=== PATIENT | male | born 1970 | race American Indian/Alaskan Native ===

== ENCOUNTER 2021-01-28 07:59 | Inpatient (IN) | payer OTHER ==
[2021-01-28 10:19] LABS: Hematocrit 41.6 % (35.5-45.6); Hemoglobin 14.4 gm/dl (11.8-15.2); Mean Corpuscular HGB Conc 35 % (32-34); Mean Corpuscular Volume 97 fl (84-94); Red Blood Count 4.29 M/mm3 (3.65-5.03); Red Cell Distribution Width 14.4 % (13.2-15.2)
[2021-01-28 10:21] LABS: Platelet Count 84 K/mm3 (140-440)
[2021-01-28 10:37] LABS: Alanine Aminotransferase 77 units/L (7-56); BUN/Creatinine Ratio 9; Blood Urea Nitrogen 7 mg/dL (9-20); Calcium 10.4 mg/dL (8.4-10.2); Hemolysis Index 9
[2021-01-28 12:00] LABS: Albumin < 0.2 g/dL (3.9-5)
[2021-01-28] MEDS ORDERED: LORazepam 2 MG/ML VIAL IV ONE (13:50)
[2021-01-28] MEDS ORDERED: SODIUM CHLORIDE 0.9% 1000 ML 1,000 ML IV ONE ×2 (13:50→16:50)
--- NOTE | 2021-01-28 14:04 | Emergency Department Report ---
HPI - HPI HPI: Room 5 The patient is a 51-year-old male present with a chief complaint of alcohol withdrawal. Patient states he almost fell while getting out of bed. Patient states he has been experiencing anxiety and body shakes lately. Patient appears slightly confused but grossly tremulous. Patient admits to drinking beer daily (two 24 ounce cans) but states he has been attempting to detox on his own and dumas s not consumed any beer in the last 4 days. <VALENCIA DE LOS SANTOS - Last Filed: 01/28/21 15:59> <LEONIDAS SHAIKH - Last Filed: 01/28/21 16:53> - General Chief Complaint: Anxiety Time Seen by Provider: 01/28/21 13:40 ED Past Medical Hx - Past Medical History Previous Medical History?: Yes Hx Hypertension: Yes Hx Psychiatric Treatment: Yes (anxiety) Hx Asthma: Yes - Surgical History Past Surgical History?: Yes - Family History Family history: no significant - Social History Smoking Status: Current Some Day Smoker Substance Use Type: None (Denies illicit drug use), Alcohol (48 ounces of beer daily) <VALENCIA DE LOS SANTOS - Last Filed: 01/28/21 15:59> <LEONIDAS SHAIKH - Last Filed: 01/28/21 16:53> - Medications Home Medications: Home Medications Medication Instructions Recorded Confirmed Last Taken Type ALBUTEROL NEB's [Proventil 0.083% 1 inh IH 4XD PRN 01/28/21 01/28/21 Unknown History NEBS] Budesonide/Formoterol Fumarate 10.2 gm IH DAILY 01/28/21 01/28/21 Unknown History [Symbicort 80-4.5 Mcg Inhaler] ED Review of Systems ROS: Stated complaint: SHAKING, SEEING THINGS, HEADACHE Other details as noted in HPI Constitutional: no symptoms reported Eyes: denies: eye pain ENT: denies: throat pain Respiratory: no symptoms reported Cardiovascular: denies: chest pain Endocrine: no symptoms reported Gastrointestinal: denies: abdominal pain Genitourinary: denies: dysuria Musculoskeletal: denies: back pain Neurological: denies: headache Psychiatric: anxiety <VALENCIA DE LOS SANTOS - Last Filed: 01/28/21 15:59> ROS: Stated complaint: SHAKING, SEEING THINGS, HEADACHE Other details as noted in HPI <SHEAR,LEONIDAS S - Last Filed: 01/28/21 16:53> Physical Exam - Physical Exam Vital Signs: Vital Signs 01/28/21 08:37 Pulse Rate 124 H Respiratory 19 Rate Blood Pressure 137/97 O2 Sat by Pulse 97 Oximetry Physical Exam: GENERAL: The patient is well-developed thin male with obvious tremulousness HEENT: Normocephalic. Atraumatic. Extraocular motions are intact. Patient has moist mucous membranes. Tongue tremulous NECK: Supple. Trachea midline CHEST/LUNGS: Clear to auscultation. There is no respiratory distress noted. HEART/CARDIOVASCULAR: Regular. There is tachycardia. There is no gallop rub or murmur. ABDOMEN: Abdomen is soft, nontender. Patient has normal bowel sounds. There is no abdominal distention. SKIN: There is no rash. There is no edema. There is no diaphoresis. NEURO: The patient is awake, alert, and oriented. The patient is cooperative. The patient has no focal neurologic deficits. The patient has normal speech. Patient is tremulous. Patient appears anxious MUSCULOSKELETAL: There is no evidence of acute injury. <VALENCIA DE LOS SANTOS K - Last Filed: 01/28/21 15:59> - Physical Exam Vital Signs: Vital Signs 01/28/21 01/28/21 08:37 14:04 Temperature 100.6 F H Pulse Rate 124 H 105 H Respiratory 19 22 Rate Blood Pressure 137/97 Blood Pressure 152/11 [Right] O2 Sat by Pulse 97 97 Oximetry <LEONIDAS SHAIKH S - Last Filed: 01/28/21 16:53> ED Course Vital Signs 01/28/21 08:37 Pulse Rate 124 H Respiratory 19 Rate Blood Pressure 137/97 O2 Sat by Pulse 97 Oximetry - Consultations Consultation #1: 01/28/21 15:40 [facility] paged. <VALENCIA DE LOS SANTOS - Last Filed: 01/28/21 15:59> Vital Signs 01/28/21 01/28/21 08:37 14:04 Temperature 100.6 F H Pulse Rate 124 H 105 H Respiratory 19 22 Rate Blood Pressure 137/97 Blood Pressure 152/11 [Right] O2 Sat by Pulse 97 97 Oximetry - Consultations Consultation #2: 01/28/21 16:[address] Malhotra at [place]. We have been given permission to admit the patient to our facility. <LEONIDAS SHAIKH S - Last Filed: 01/28/21 16:53> ED Medical Decision Making - Lab Data Result diagrams: 01/28/21 09:59 01/28/21 14:12 <VALENCIA DE LOS SANTOS - Last Filed: 01/28/21 15:59> - Lab Data Result diagrams: 01/28/21 09:59 01/28/21 14:12 - Medical Decision Making CIWA-Ar for Alcohol Withdrawal RESULT SUMMARY: 17 points Patients with scores ?9 may require medication for withdrawal. INPUTS: Nausea/vomiting > 1 = Mild nausea and no vomiting Tremor > 2 = (More severe symptoms) Paroxysmal sweats > 1 = Barely perceptible sweating, palms moist Anxiety > 6 = (More severe symptoms) Agitation > 5 = (More severe symptoms) Tactile disturbances > 0 = None Auditory disturbances > 0 = Not present Visual disturbances > 0 = Not present Headache/fullness in head > 0 = Not Present Orientation/clouding of sensorium > 2 = Disoriented for date by no more than 2 calendar days I was signed out this patient by my colleague to talk with [facility] and reevaluate the patient. [facility] feels that the patient should not be transferred and they have given us permission to admit him to our hospital. The patient has received 4 mg of Ativan and remains tachycardic, anxious and agitated. Despite the medication, the patient has pulled out 4 different IVs and is visibly disturbed by anything that is on his arm such as tape or the blood pressure cuff. When asked the patient what he is doing in the emergency department he tells me something nonsensical. He is disoriented to the date saying it is 2019. When I do a CIWA score the patient is a 17. The patient will receive 4 mg of Ativan. With the disorientation, as well as the other symptoms, the patient appears to be starting to go into delirium tremens. He will be admitted to the hospital for further evaluation and treatment and was accepted for admission by the hospitalist, Dr. Gonzalez. <LEONIDAS SHAIKH - Last Filed: 01/28/21 16:53> Critical care attestation.: If time is entered above; I have spent that time in minutes in the direct care of this critically ill patient, excluding procedure time. <ALIM,VALENCIA K - Last Filed: 01/28/21 15:59> Critical care attestation.: If time is entered above; I have spent that time in minutes in the direct care of this critically ill patient, excluding procedure time. <LEONIDAS SHAIKH - Last Filed: 01/28/21 16:53> ED Disposition <VALENCIA DE LOS SANTOS - Last Filed: 01/28/21 15:59> Is pt being admited?: Yes <LEONIDAS SHAIKH - Last Filed: 01/28/21 16:53> Clinical Impression: Alcohol withdrawal delirium, Transaminitis Disposition: OP ADMIT IP TO THIS HOSP Condition: Serious Referrals: PRIMARY CARE,MD [Primary Care Provider] - 3-5 Days
[2021-01-28 14:46] LABS: Blood Urea Nitrogen 11 mg/dL (9-20); Calcium 10.5 mg/dL (8.4-10.2); Hemolysis Index 8
[2021-01-28 14:49] LABS: BUN/Creatinine Ratio 16
[2021-01-28] MEDS ORDERED: MAGNESIUM SULFATE 2 GM/50 ML BAG IV ONE (15:00)
[2021-01-28] MEDS ORDERED: THIAMINE 100 MG, FOLIC ACID 1 MG, MULTIPLE VITAMIN INJ, ADULT 10 ML in SODIUM CHLORIDE ... IV ONE (15:00)
[2021-01-28] MEDS: LORazepam 2 MG/ML VIAL IV PRN ×7 (15:55→22:16)
--- NOTE | 2021-01-28 16:31 | XRay Report ---
CHEST 1 VIEW 01/28/2021 3:23 PM INDICATION / CLINICAL INFORMATION: fever. COMPARISON: None available. FINDINGS: SUPPORT DEVICES: None. HEART / MEDIASTINUM: No significant abnormality. LUNGS / PLEURA: No significant pulmonary or pleural abnormality. No pneumothorax. ADDITIONAL FINDINGS: No significant additional findings. IMPRESSION: 1. No acute findings. Signer Name: Jay Redmond MD Signed: 01/28/2021 4:26 PM Workstation Name: [id number]
[2021-01-28] MEDS ORDERED: ACETAMINOPHEN 325 MG TAB PO PRN (16:46)
[2021-01-28] MEDS ORDERED: ALBUTEROL 2.5 MG/3 ML NEBU IH PRN ×2 (16:46→16:48)
[2021-01-28] MEDS ORDERED: ONDANSETRON 4 MG/2 ML INJ IV PRN (16:46)
--- NOTE | 2021-01-28 16:50 | History and Physical Report ---
History of Present Illness Chief complaint: I have the shakes History of present illness: 51 YO Male with HTN, JENNIFER, Asthma, Nicotine Dependence, ETOH Dependence presents to ED for evaluation. Patient reports "I have the shakes". Patient is tremulous with diminished cognition at the time of my exam and evaluation and is unable to provide detailed history. Patient provides minimal history reporting that he "has the shakes". Patient history taken from ED staff, as well as the patient's family who are available via telephone. Patient family reports that patient has had diminished alcohol intake in an attempt to detox on his own over the past 4 days. Patient experienced increased episodes of confusion and alex tation. Patient was subsequently transported to [facility] via private vehicle for further care and evaluation of the aforementioned symptoms. The patient was seen and evaluated in the emergency department. All lab and imaging studies reviewed. The patient was found to have alcohol withdrawal complicated by delirium tremens. Patient admitted to [facility] and initiated on alcohol withdrawal protocol. Patient is confused with diminished cognition but has a positive gag reflex and is able to protect his airway without difficulty. No further history is obtainable. Past History Past Medical History: hypertension, other (See HPI) Past Surgical History: No surgical history Social history: , lives with family, smoking, alcohol abuse Family history: hypertension Medications and Allergies Allergies Allergy/AdvReac Type Severity Reaction Status Date / Time No Known Allergies Allergy Unverified 01/28/21 14:41 Home Medications Medication Instructions Recorded Confirmed Last Taken Type ALBUTEROL NEB's [Proventil 0.083% 1 inh IH 4XD PRN 01/28/21 01/28/21 Unknown History NEBS] Budesonide/Formoterol Fumarate 10.2 gm IH DAILY 01/28/21 01/28/21 Unknown History [Symbicort 80-4.5 Mcg Inhaler] Active Meds: Active Medications Acetaminophen (Acetaminophen 325 Mg Tab) 650 mg PO Q4H PRN PRN Reason: Pain MILD(1-3)/Fever >100.5/VARGAS Albuterol (Albuterol 2.5 Mg/3 Ml Nebu) 2.5 mg IH Q4HRT PRN PRN Reason: Shortness Of Breath Albuterol (Albuterol 2.5 Mg/3 Ml Nebu) mg IH 4XD PRN PRN Reason: SHORTNESS OF BREATH Thiamine HCl 100 mg/ Folic Acid 1 mg/ Multivitamins/Minerals 10 ml/ Sodium Chloride 1,011.2 mls @ 250 mls/hr IV ONCE ONE Stop: 01/28/21 19:02 Last Admin: 01/28/21 16:04 Dose: 250 mls/hr Documented by: Lorazepam (Lorazepam 2 Mg/Ml Vial) 2 mg IV Q1HR PRN PRN Reason: CIWA-Ar 8-15 Last Admin: 01/28/21 15:55 Dose: 2 mg Documented by: Lorazepam (Lorazepam 2 Mg/Ml Vial) 4 mg IV Q1HR PRN PRN Reason: CIWA-Ar 16-25 Lorazepam (Lorazepam 2 Mg/Ml Vial) 4 mg IV Q15MIN PRN PRN Reason: CIWA-Ar >25 Miscellaneous Medication (Budesonide/Formoterol Fumarate [Symbicort 80-4.5 Mcg Inhaler]) 10.2 gm IH DAILY MAN Ondansetron HCl (Ondansetron 4 Mg/2 Ml Inj) 4 mg IV Q8H PRN PRN Reason: Nausea And Vomiting Sodium Chloride (Sodium Chloride 0.9% 10 Ml Flush Syringe) 10 ml IV BID MAN Sodium Chloride (Sodium Chloride 0.9% 10 Ml Flush Syringe) 10 ml IV PRN PRN PRN Reason: LINE FLUSH Review of Systems ROS unobtainable: due to mental status Exam - Constitutional Vitals: Temp Pulse Resp BP Pulse Ox 100.6 F H 105 H 22 152/11 97 01/28/21 14:04 01/28/21 14:04 01/28/21 14:04 01/28/21 14:04 01/28/21 14:04 General appearance: Present: mild distress - EENT Eyes: Present: PERRL ENT: hearing intact, clear oral mucosa - Neck Neck: Present: supple - Respiratory Respiratory effort: normal Respiratory: bilateral: CTA - Cardiovascular Rhythm: other Heart Sounds: Present: S1 & S2. Absent: rub, click - Extremities Extremities: pulses symmetrical, No edema Peripheral Pulses: within normal limits - Abdominal General gastrointestinal: Present: soft, non-tender, non-distended, normal bowel sounds Male genitourinary: Present: normal - Integumentary Integumentary: Present: dry, clammy - Musculoskeletal Musculoskeletal: generalized weakness - Psychiatric Psychiatric: no appropriate mood/affect, no intact judgment & insight, no memory intact, agitated - Neurologic Neurologic: CNII-XII intact, no focal deficits, moves all extremities, no gait normal HEART Score - HEART Score Troponin: Troponin T < 0.010 ng/mL (0.00-0.029) 01/28/21 09:59 Results - Labs CBC & Chem 7: 01/28/21 09:59 01/28/21 14:12 Labs: Abnormal lab results 01/28/21 01/28/21 01/28/21 Range/Units 09:59 09:59 09:59 WBC 4.3 L (4.5-11.0) K/mm3 MCV 97 H (84-94) fl MCH 34 H (28-32) pg MCHC 35 H (32-34) % Plt Count 84 L (140-440) K/mm3 VBG pH (7.320-7.420) Sodium 131 L (137-145) mmol/L Potassium 3.4 L (3.6-5.0) mmol/L Chloride 87.5 L (98-107) mmol/L Carbon Dioxide < 2.0 L* (22-30) mmol/L BUN 7 L (9-20) mg/dL Creatinine (0.8-1.3) mg/dL Glucose (75-100) mg/dL Calcium 10.4 H (8.4-10.2) mg/dL AST 180 H (5-40) units/L ALT 77 H (7-56) units/L Albumin < 0.2 L (3.9-5) g/dL Lipase 73 H (13-60) units/L 01/28/21 01/28/21 Range/Units 14:12 14:12 WBC (4.5-11.0) K/mm3 MCV (84-94) fl MCH (28-32) pg MCHC (32-34) % Plt Count (140-440) K/mm3 VBG pH 7.479 H (7.320-7.420) Sodium 132 L (137-145) mmol/L Potassium 3.4 L (3.6-5.0) mmol/L Chloride 90.1 L (98-107) mmol/L Carbon Dioxide (22-30) mmol/L BUN (9-20) mg/dL Creatinine 0.7 L (0.8-1.3) mg/dL Glucose 122 H (75-100) mg/dL Calcium 10.5 H (8.4-10.2) mg/dL AST (5-40) units/L ALT (7-56) units/L Albumin (3.9-5) g/dL Lipase (13-60) units/L Assessment and Plan - Patient Problems (1) Delirium tremens Current Visit: Yes Status: Acute Plan to address problem: Alcohol withdrawal protocol: CIWA protocol, thiamine, folic acid, multivitamin daily, IV fluid resuscitation therapy, seizure precautions, aspiration precautions, fall precautions, neuro check. (2) Alcohol withdrawal syndrome Current Visit: Yes Status: Acute Qualifiers: Complication of substance-induced condition: with delirium Qualified Code(s): F10.231 - Alcohol dependence with withdrawal delirium Plan to address problem: Alcohol withdrawal protocol: CIWA protocol, thiamine, folic acid, multivitamin daily, IV fluid resuscitation therapy, (3) Nicotine dependence Current Visit: Yes Status: Acute Qualifiers: Nicotine product type: cigarettes Substance use status: in withdrawal Qualified Code(s): F17.213 - Nicotine dependence, cigarettes, with withdrawal Plan to address problem: Smoking cessation counseling, supportive care, +15 minutes. (4) Hyponatremia syndrome Current Visit: Yes Status: Acute Plan to address problem: IV fluid resuscitation therapy, BMP, repeat BMP in a.m. to monitor serum sodium. (5) Severe malnutrition Current Visit: Yes Status: Acute Plan to address problem: Increase protein intake, dietary supplementation, supportive care. (6) DVT prophylaxis Current Visit: Yes Status: Acute Plan to address problem: SCD to bilateral lower extremities while in bed, patient is ambulatory
[2021-01-28] MEDS: BUDESONIDE 0.5 MG/2 ML NEBU IH SCH (20:00)
[2021-01-28] MEDS: ARFORMOTEROL 15 MCG/2 ML NEBU IH SCH (20:00)
[2021-01-29] MEDS: LORazepam 2 MG/ML VIAL IV PRN ×2 (00:46→07:50)
[2021-01-29] MEDS: BUDESONIDE 0.5 MG/2 ML NEBU IH SCH ×2 (08:42→22:38)
[2021-01-29] MEDS: ARFORMOTEROL 15 MCG/2 ML NEBU IH SCH ×2 (08:42→22:39)
[2021-01-29 08:54] LABS: Basophils % (Auto) 0.5 % (0.0-1.8); Eosinophils % (Auto) 0.6 % (0.0-4.3); Hematocrit 38.8 % (35.5-45.6); Hemoglobin 13.3 gm/dl (11.8-15.2); Lymphocytes # (Auto) 0.4 K/mm3 (1.2-5.4); Lymphocytes % (Auto) 11.6 % (13.4-35.0); Mean Corpuscular HGB Conc 34 % (32-34); Mean Corpuscular Volume 99 fl (84-94); Monocytes # (Auto) 0.4 K/mm3 (0.0-0.8); Monocytes % (Auto) 11.7 % (0.0-7.3); Red Blood Count 3.93 M/mm3 (3.65-5.03); Red Cell Distribution Width 14.3 % (13.2-15.2)
[2021-01-29 08:55] LABS: Platelet Count 67 K/mm3 (140-440)
[2021-01-29 09:14] LABS: Alanine Aminotransferase 84 units/L (7-56); Albumin 4.7 g/dL (3.9-5); Blood Urea Nitrogen 10 mg/dL (9-20); Calcium 9.4 mg/dL (8.4-10.2); Hemolysis Index 16
[2021-01-29 09:30] LABS: BUN/Creatinine Ratio 17
[2021-01-29] MEDS: FOLIC ACID 1 MG TAB PO SCH (09:57)
[2021-01-29] MEDS ORDERED: THIAMINE 100 MG TAB PO ONE (10:00)
[2021-01-29] MEDS ORDERED: MULTIVITAMINS ,THERAPEUTIC TAB PO ONE (10:00)
--- NOTE | 2021-01-29 10:14 | Electrocardiograph Report ---
[facility] Test Date: 2021-01-28 Test Time: 09:04:30 Pat Name: SHANEL ARROYO Department: Room: A264 Gender: M Cane Packer: IMTIAZ : 1970 Requested By: BRAYDEN MARIA Order Number: [id number] Reading MD: Ced Henry Measurements Intervals [place] Rate: 104 P: 77 CO: 162 QRS: 31 QRSD: 86 T: 49 QT: 319 QTc: 419 Interpretive Statements Sinus tachycardia Right atrial enlargement ST elev, probable normal early repol pattern No previous ECG available for comparison Electronically Signed On 01-29-2021 10:14:11 EDT by Ced Henry
--- NOTE | 2021-01-29 12:10 | Progress Note ---
Assessment and Plan Assessment and plan: --Delirium tremens Current Visit: Yes Status: Acute Continue CIMI protocol, seizure precautions --Alcohol withdrawal syndrome Current Visit: Yes Status: Acute Alcohol withdrawal protocol: [facility] protocol, thiamine, folic acid, multivitamin daily, IV fluid resuscitation therapy, --Nicotine dependence Current Visit: Yes Status: Acute Smoking cessation counseling, supportive care, +15 minutes. --Hyponatremia syndrome Current Visit: Yes Status: Acute IV fluid resuscitation therapy, BMP, repeat BMP in a.m. to monitor serum sodium. --Alcoholic liver disease; Current Visit: Yes Status: Acute Elevated transaminases, trending down Closely monitor, check abdominal ultrasound if needed Advised to quit alcohol intake --Severe malnutrition Current Visit: Yes Status: Acute Increase protein intake, dietary supplementation, supportive care. --Chronic alcohol abuse; Current Visit: Yes Status: Chronic Strongly advised to quit alcohol intake Advised to seek alcohol rehabilitation Alcohol Anonymous support upon discharge Patient and his verbalized understanding --DVT prophylaxis Current Visit: Yes Status: Acute SCD to bilateral lower extremities while in bed, patient is ambulatory Closely monitor the patient and adjust the management as needed Patient's was at the bedside, I extensively discussed about patient's condition Treatment plan, tests and reports, alcohol rehabilitation and discharge planning Answered all their questions, possible discharge in 1 to 2 days if stable History Interval history: I have seen and examined the patient at the bedside this morning in [facility] Patient's chart and medications reviewed Patient was admitted with alcohol withdrawal symptoms on [facility] protocol Partially restraint for safety Patient is alert and awake responding to simple questions appropriately Mild tremulousness no agitation Patient's is at the bedside Anxious to go home Vital signs reviewed Hospitalist Physical - Constitutional Vitals: Temp Pulse Resp BP Pulse Ox 98.3 F 81 17 118/83 100 01/29/21 08:00 01/29/21 11:00 01/29/21 11:00 01/29/21 11:00 01/29/21 11:00 General appearance: Present: mild distress, cachectic, disheveled, other (Mild tremulousness) - EENT Eyes: Present: PERRL, EOM intact - Neck Neck: Present: supple, normal ROM - Respiratory Respiratory effort: normal Respiratory: bilateral: diminished, negative: rales, rhonchi, wheezing - Cardiovascular Rhythm: regular Heart Sounds: Present: S1 & S2 - Extremities Extremities: no ischemia, No edema - Abdominal General gastrointestinal: soft, non-tender, non-distended, normal bowel sounds - Integumentary Integumentary: Present: clear, warm - Psychiatric Psychiatric: appropriate mood/affect, cooperative - Neurologic Neurologic: CNII-XII intact, moves all extremities HEART Score - HEART Score Troponin: Troponin T < 0.010 ng/mL (0.00-0.029) 01/28/21 09:59 Results - Labs CBC & Chem 7: 01/29/21 07:42 01/29/21 07:42 Labs: Laboratory Last Values WBC 3.6 K/mm3 (4.5-11.0) L 01/29/21 07:42 RBC 3.93 M/mm3 (3.65-5.03) 01/29/21 07:42 Hgb 13.3 gm/dl (11.8-15.2) 01/29/21 07:42 Hct 38.8 % (35.5-45.6) 01/29/21 07:42 MCV 99 fl (84-94) H 01/29/21 07:42 MCH 34 pg (28-32) H 01/29/21 07:42 MCHC 34 % (32-34) 01/29/21 07:42 RDW 14.3 % (13.2-15.2) 01/29/21 07:42 Plt Count 67 K/mm3 (140-440) L 01/29/21 07:42 Lymph % (Auto) 11.6 % (13.4-35.0) L 01/29/21 07:42 [place] % (Auto) 11.7 % (0.0-7.3) H 01/29/21 07:42 Eos % (Auto) 0.6 % (0.0-4.3) 01/29/21 07:42 Baso % (Auto) 0.5 % (0.0-1.8) 01/29/21 07:42 Lymph # (Auto) 0.4 K/mm3 (1.2-5.4) L 01/29/21 07:42 [place] # (Auto) 0.4 K/mm3 (0.0-0.8) 01/29/21 07:42 Eos # (Auto) 0.0 K/mm3 (0.0-0.4) 01/29/21 07:42 Baso # (Auto) 0.0 K/mm3 (0.0-0.1) 01/29/21 07:42 Seg Neutrophils % 75.6 % (40.0-70.0) H 01/29/21 07:42 Seg Neutrophils # 2.7 K/mm3 (1.8-7.7) 01/29/21 07:42 VBG pH 7.479 (7.320-7.420) H 01/28/21 14:12 Sodium 139 mmol/L (137-145) D 01/29/21 07:42 Potassium 3.4 mmol/L (3.6-5.0) L 01/29/21 07:42 Chloride 98.4 mmol/L (98-107) 01/29/21 07:42 Carbon Dioxide 27 mmol/L (22-30) 01/29/21 07:42 Anion Gap 17 mmol/L 01/29/21 07:42 BUN 10 mg/dL (9-20) 01/29/21 07:42 Creatinine 0.6 mg/dL (0.8-1.3) L 01/29/21 07:42 Estimated GFR > 60 ml/min 01/29/21 07:42 BUN/Creatinine Ratio 17 % 01/29/21 07:42 Glucose 70 mg/dL (75-100) L 01/29/21 07:42 Lactic Acid 2.00 mmol/L (0.7-2.0) 01/28/21 14:12 Calcium 9.4 mg/dL (8.4-10.2) 01/29/21 07:42 Magnesium 2.10 mg/dL (1.7-2.3) 01/28/21 09:59 Total Bilirubin 1.40 mg/dL (0.1-1.2) H 01/29/21 07:42 AST 221 units/L (5-40) H 01/29/21 07:42 ALT 84 units/L (7-56) H 01/29/21 07:42 Alkaline Phosphatase 81 units/L (35-129) 01/29/21 07:42 Total Creatine Kinase 91 units/L (55-170) 01/28/21 09:59 Troponin T < 0.010 ng/mL (0.00-0.029) 01/28/21 09:59 Total Protein 6.8 g/dL (6.3-8.2) 01/29/21 07:42 Albumin 4.7 g/dL (3.9-5) 01/29/21 07:42 Albumin/Globulin Ratio 2.2 % 01/29/21 07:42 Lipase 73 units/L (13-60) H 01/28/21 09:59 TSH 1.190 mlU/mL (0.270-4.200) 01/28/21 09:59 Plasma/Serum Alcohol < 0.01 % (0-0.07) 01/28/21 16:28 [place]/IV: Voiding Method Condom Catheter Active Medications - Current Medications Current Medications: Generic Name Dose Route Start Last Admin Trade Name Freq PRN Reason Stop Dose Admin Acetaminophen 650 mg 01/28/21 16:46 Acetaminophen 325 Mg Tab PO Q4H PRN Pain MILD(1-3)/Fever >100.5/VARGAS Albuterol 2.5 mg 01/28/21 16:46 Albuterol 2.5 Mg/3 Ml Nebu IH Q4HRT PRN Shortness Of Breath Arformoterol Tartrate 15 mcg 01/28/21 20:00 01/29/21 08:42 Arformoterol 15 Mcg/2 Ml Nebu IH 15 mcg Q12HRT MAN Administration Budesonide 0.5 mg 01/28/21 20:00 01/29/21 08:42 Budesonide 0.5 Mg/2 Ml Nebu IH 0.5 mg Q12HRT MAN Administration Folic Acid 1 mg 01/29/21 10:00 01/29/21 09:57 Folic Acid 1 Mg Tab PO 1 mg QDAY MAN Administration Sodium Chloride 1,000 mls @ 125 mls/hr 01/28/21 17:00 Nacl 0.9% 1000 Ml IV DIRECT MAN Lorazepam 2 mg 01/28/21 13:50 01/29/21 07:50 Lorazepam 2 Mg/Ml Vial IV 2 mg Q1HR PRN Administration CIWA-Ar 8-15 Lorazepam 4 mg 01/28/21 13:50 01/28/21 21:05 Lorazepam 2 Mg/Ml Vial IV 4 mg Q1HR PRN Administration CIWA-Ar 16-25 Lorazepam 4 mg 01/28/21 13:50 01/28/21 22:16 Lorazepam 2 Mg/Ml Vial IV 4 mg Q15MIN PRN Administration CIWA-Ar >25 Ondansetron HCl 4 mg 01/28/21 16:46 Ondansetron 4 Mg/2 Ml Inj IV Q8H PRN Nausea And Vomiting Sodium Chloride 10 ml 01/28/21 22:00 01/29/21 09:57 Sodium Chloride 0.9% 10 Ml Flush Syringe IV 10 ml BID MAN Administration Sodium Chloride 10 ml 01/28/21 16:46 Sodium Chloride 0.9% 10 Ml Flush Syringe IV PRN PRN LINE FLUSH Nutrition/Malnutrition Assess - Dietary Evaluation Nutrition/Malnutrition Findings: Nutrition Notes Start: 01/29/21 11:30 Freq: Status: Active Protocol: Document 01/29/21 11:30 (Rec: 01/29/21 11:38 [id number]) Nutrition Notes Need for Assessment generated from: Low BMI Initial or Follow up Brief Note Current Diagnosis Hypertension Other Pertinent Diagnosis etoh withdrawal Current Diet no diet Height 6 ft 1 in Weight 63 kg [place] Body Weight (kg) 83.63 BMI 18.3 Weight Status Underweight Subjective/Other Information Screen for low BMI. Pt did not wake at time of visit. Pt has mild muscle wasting. Burn Absent Trauma Absent Minimum of two criteria No Muscle Mass Mild Depletion (non-severe) Nutrition Intervention Follow-Up By: 01/30/21 Additional Comments FU for assessment
[2021-01-29] MEDS: SODIUM CHLORIDE 0.9% 1000 ML 1,000 ML IV SCH (16:59)
[2021-01-29 18:33] LABS: Bilirubin,Urine NEG (Negative); Blood,Urine NEG (Negative); Color,Urine Amber (Yellow); Mucus,Urine FEW /HPF; Protein,Urine <15 mg/dL mg/dL (Negative)
[2021-01-29 18:41] LABS: Amphetamine Screen,Urine Negative; Cocaine Screen,Urine Negative; Methadone Screen,Urine Negative; Opiate Screen,Urine Negative
[2021-01-29 18:54] LABS: Benzodiazepines Screen,Urine Positive; Cannabinoid Screen,Urine Positive
[2021-01-30] MEDS: SODIUM CHLORIDE 0.9% 1000 ML 1,000 ML IV SCH ×3 (01:44→23:54)
[2021-01-30 05:47] LABS: Alanine Aminotransferase 80 units/L (7-56); Blood Urea Nitrogen 7 mg/dL (9-20); Calcium 8.9 mg/dL (8.4-10.2); Hemolysis Index 16
[2021-01-30 05:50] LABS: BUN/Creatinine Ratio 14
[2021-01-30] MEDS: ARFORMOTEROL 15 MCG/2 ML NEBU IH SCH ×2 (07:07→19:58)
[2021-01-30] MEDS: BUDESONIDE 0.5 MG/2 ML NEBU IH SCH ×2 (07:08→19:58)
[2021-01-30] MEDS: LORazepam 2 MG/ML VIAL IV PRN ×4 (07:16→16:53)
[2021-01-30] MEDS: FOLIC ACID 1 MG TAB PO SCH (09:01)
--- NOTE | 2021-01-30 10:41 | Progress Note ---
Assessment and Plan Assessment and plan: --Delirium tremens Current Visit: Yes Status: Acute Continue CIWA protocol, seizure precautions --Alcohol withdrawal syndrome Current Visit: Yes Status: Acute Alcohol withdrawal protocol: CIWA protocol, thiamine, folic acid, multivitamin daily, IV fluid resuscitation therapy, --Hypophosphatemia/hypokalemia Current Visit: Yes Status: Acute Replenished with oral KCl and Neutra Follow electrolytes and correct as needed --Nicotine dependence Current Visit: Yes Status: Acute Smoking cessation counseling, supportive care, +15 minutes. --Hyponatremia syndrome Current Visit: Yes Status: Acute IV fluid resuscitation therapy, BMP, repeat BMP in a.m. to monitor serum sodium. --Alcoholic liver disease; Current Visit: Yes Status: Acute Elevated transaminases, trending down Closely monitor, check abdominal ultrasound if needed Advised to quit alcohol intake --Severe malnutrition Current Visit: Yes Status: Acute Increase protein intake, dietary supplementation, supportive care. --Chronic alcohol abuse; Current Visit: Yes Status: Chronic Strongly advised to quit alcohol intake Advised to seek alcohol rehabilitation Alcohol Anonymous support upon discharge Patient and his verbalized understanding --DVT prophylaxis Current Visit: Yes Status: Acute SCD to bilateral lower extremities while in bed, patient is ambulatory Closely monitor the patient and adjust the management as needed Patient's was at the bedside, I extensively discussed about patient's condition Treatment plan, tests and reports, alcohol rehabilitation and discharge planning Answered all their questions, possible discharge in 1 to 2 days if stable Brief history : 51 YO Male with HTN, JENNIFER, Asthma, Nicotine Dependence, ETOH Dependence is admitted to the emergency room with altered level of consciousness tremulousness and shaking chills. Patient gives history of trying to stop alcohol intake and attempt to detox for the past 4 days, and patient experienced worsening mental status and confusion and tremulousness, and was in alcohol withdrawal and delirium tremens placed on CIWA protocol. Restraint for safety 01/30/2021; patient has severe agitation requiring four-point restraints and high dose of Ativan Recommend alcohol rehabilitation, and to join alcohol Anonymous support system. History Interval history: I have seen and examined the patient at the bedside Patient has severe alcohol withdrawal symptoms of agitation Patient is receiving medications per [facility] protocol, sleeping Restraint for safety Vital signs noted Hospitalist Physical - Constitutional Vitals: Temp Pulse Resp BP Pulse Ox 99.1 F 117 H 21 135/93 100 01/30/21 08:00 01/30/21 10:01 01/30/21 10:01 01/30/21 10:01 01/30/21 10:01 General appearance: Present: no acute distress, cachectic, disheveled, other (Patient is sleeping due to Ativan) - EENT Eyes: Present: PERRL, EOM intact - Neck Neck: Present: supple, normal ROM - Respiratory Respiratory effort: normal Respiratory: bilateral: diminished, negative: rales, rhonchi, wheezing - Cardiovascular Rhythm: regular Heart Sounds: Present: S1 & S2 (Tachycardia) - Extremities Extremities: no ischemia, No edema - Abdominal General gastrointestinal: soft, non-tender, non-distended, normal bowel sounds - Integumentary Integumentary: Present: clear, warm - Psychiatric Psychiatric: other (Sleeping) - Neurologic Neurologic: moves all extremities HEART Score - HEART Score Troponin: Troponin T < 0.010 ng/mL (0.00-0.029) 01/28/21 09:59 Results - Labs CBC & Chem 7: 01/29/21 07:42 01/30/21 04:22 Labs: Laboratory Last Values WBC 3.6 K/mm3 (4.5-11.0) L 01/29/21 07:42 RBC 3.93 M/mm3 (3.65-5.03) 01/29/21 07:42 Hgb 13.3 gm/dl (11.8-15.2) 01/29/21 07:42 Hct 38.8 % (35.5-45.6) 01/29/21 07:42 MCV 99 fl (84-94) H 01/29/21 07:42 MCH 34 pg (28-32) H 01/29/21 07:42 MCHC 34 % (32-34) 01/29/21 07:42 RDW 14.3 % (13.2-15.2) 01/29/21 07:42 Plt Count 67 K/mm3 (140-440) L 01/29/21 07:42 Lymph % (Auto) 11.6 % (13.4-35.0) L 01/29/21 07:42 [place] % (Auto) 11.7 % (0.0-7.3) H 01/29/21 07:42 Eos % (Auto) 0.6 % (0.0-4.3) 01/29/21 07:42 Baso % (Auto) 0.5 % (0.0-1.8) 01/29/21 07:42 Lymph # (Auto) 0.4 K/mm3 (1.2-5.4) L 01/29/21 07:42 [place] # (Auto) 0.4 K/mm3 (0.0-0.8) 01/29/21 07:42 Eos # (Auto) 0.0 K/mm3 (0.0-0.4) 01/29/21 07:42 Baso # (Auto) 0.0 K/mm3 (0.0-0.1) 01/29/21 07:42 Seg Neutrophils % 75.6 % (40.0-70.0) H 01/29/21 07:42 Seg Neutrophils # 2.7 K/mm3 (1.8-7.7) 01/29/21 07:42 VBG pH 7.479 (7.320-7.420) H 01/28/21 14:12 Sodium 134 mmol/L (137-145) L 01/30/21 04:22 Potassium 3.0 mmol/L (3.6-5.0) L 01/30/21 04:22 Chloride 97.2 mmol/L (98-107) L 01/30/21 04:22 Carbon Dioxide 24 mmol/L (22-30) 01/30/21 04:22 Anion Gap 16 mmol/L 01/30/21 04:22 BUN 7 mg/dL (9-20) L 01/30/21 04:22 Creatinine 0.5 mg/dL (0.8-1.3) L 01/30/21 04:22 Estimated GFR > 60 ml/min 01/30/21 04:22 BUN/Creatinine Ratio 14 % 01/30/21 04:22 Glucose 89 mg/dL (75-100) 01/30/21 04:22 Lactic Acid 2.00 mmol/L (0.7-2.0) 01/28/21 14:12 Calcium 8.9 mg/dL (8.4-10.2) 01/30/21 04:22 Phosphorus 2.30 mg/dL (2.5-4.5) L 01/30/21 04:22 Magnesium 1.90 mg/dL (1.7-2.3) 01/30/21 04:22 Total Bilirubin 1.20 mg/dL (0.1-1.2) 01/30/21 04:22 AST 158 units/L (5-40) H 01/30/21 04:22 ALT 80 units/L (7-56) H 01/30/21 04:22 Alkaline Phosphatase 72 units/L (35-129) 01/30/21 04:22 Total Creatine Kinase 91 units/L (55-170) 01/28/21 09:59 Troponin T < 0.010 ng/mL (0.00-0.029) 01/28/21 09:59 Total Protein 6.5 g/dL (6.3-8.2) 01/30/21 04:22 Albumin 4.0 g/dL (3.9-5) 01/30/21 04:22 Albumin/Globulin Ratio 1.6 % 01/30/21 04:22 Lipase 73 units/L (13-60) H 01/28/21 09:59 TSH 1.190 mlU/mL (0.270-4.200) 01/28/21 09:59 Urine Color La (Yellow) 01/29/21 09:27 Urine Turbidity Clear (Clear) 01/29/21 09:27 Urine pH 7.0 (5.0-7.0) 01/29/21 09:27 Ur Specific [place] 1.016 (1.003-1.030) 01/29/21 09:27 Urine Protein <15 mg/dl mg/dL (Negative) 01/29/21 09:27 Urine Glucose (UA) Neg mg/dL (Negative) 01/29/21 09:27 Urine Ketones 20 mg/dL (Negative) 01/29/21 09:27 Urine Blood Neg (Negative) 01/29/21 09:27 Urine Nitrite Neg (Negative) 01/29/21 09:27 Urine Bilirubin Neg (Negative) 01/29/21 09:27 Urine Urobilinogen 4.0 mg/dL (<2.0) 01/29/21 09:27 Ur Leukocyte Esterase Neg (Negative) 01/29/21 09:27 Urine WBC (Auto) 1.0 /HPF (0.0-6.0) 01/29/21 09:27 Urine RBC (Auto) 1.0 /HPF (0.0-6.0) 01/29/21 09:27 U Epithel Cells (Auto) < 1.0 /HPF (0-13.0) 01/29/21 09:27 Urine Mucus Few /HPF 01/29/21 09:27 Urine Opiates Screen Negative 01/29/21 09:27 Urine Methadone Screen Negative 01/29/21 09:27 Ur Barbiturates Screen Negative 01/29/21 09:27 Ur Phencyclidine Scrn Negative 01/29/21 09:27 Ur Amphetamines Screen Negative 01/29/21 09:27 U Benzodiazepines Scrn Positive 01/29/21 09:27 Urine Cocaine Screen Negative 01/29/21 09:27 U Marijuana (THC) Screen Positive 01/29/21 09:27 Drugs of Abuse Note Disclamer 01/29/21 09:27 Plasma/Serum Alcohol < 0.01 % (0-0.07) 01/28/21 16:28 [place]/IV: Voiding Method Condom Catheter Active Medications - Current Medications Current Medications: Generic Name Dose Route Start Last Admin Trade Name Freq PRN Reason Stop Dose Admin Acetaminophen 650 mg 01/28/21 16:46 Acetaminophen 325 Mg Tab PO Q4H PRN Pain MILD(1-3)/Fever >100.5/VARGAS Albuterol 2.5 mg 01/28/21 16:46 Albuterol 2.5 Mg/3 Ml Nebu IH Q4HRT PRN Shortness Of Breath Arformoterol Tartrate 15 mcg 01/28/21 20:00 01/30/21 07:07 Arformoterol 15 Mcg/2 Ml Nebu IH 15 mcg Q12HRT MAN Administration Budesonide 0.5 mg 01/28/21 20:00 01/30/21 07:08 Budesonide 0.5 Mg/2 Ml Nebu IH 0.5 mg Q12HRT MAN Administration Folic Acid 1 mg 01/29/21 10:00 01/30/21 09:01 Folic Acid 1 Mg Tab PO 1 mg QDAY MAN Administration Sodium Chloride 1,000 mls @ 125 mls/hr 01/28/21 17:00 01/30/21 01:44 Nacl 0.9% 1000 Ml IV 125 mls/hr DIRECT MAN Administration Dexmedetomidine HCl 400 mcg/ 104 mls @ 3.276 mls/hr 01/30/21 11:00 01/30/21 10:37 Sodium Chloride IV 0.2 mcg/kg/hr TITRATE MAN 3.276 mls/hr Administration Protocol 0.2 MCG/KG/HR Lorazepam 2 mg 01/28/21 13:50 01/29/21 07:50 Lorazepam 2 Mg/Ml Vial IV 2 mg Q1HR PRN Administration CIWA-Ar 8-15 Lorazepam 4 mg 01/28/21 13:50 01/30/21 09:00 Lorazepam 2 Mg/Ml Vial IV 4 mg Q1HR PRN Administration CIWA-Ar 16-25 Lorazepam 4 mg 01/28/21 13:50 01/28/21 22:16 Lorazepam 2 Mg/Ml Vial IV 4 mg Q15MIN PRN Administration CIWA-Ar >25 Ondansetron HCl 4 mg 01/28/21 16:46 Ondansetron 4 Mg/2 Ml Inj IV Q8H PRN Nausea And Vomiting Sodium Chloride 10 ml 01/28/21 22:00 01/30/21 09:02 Sodium Chloride 0.9% 10 Ml Flush Syringe IV 10 ml BID MAN Administration Sodium Chloride 10 ml 01/28/21 16:46 Sodium Chloride 0.9% 10 Ml Flush Syringe IV PRN PRN LINE FLUSH Nutrition/Malnutrition Assess - Dietary Evaluation Nutrition/Malnutrition Findings: Nutrition Notes Start: 01/29/21 11:30 Freq: Status: Active Protocol: Document 01/30/21 10:27 (Rec: 01/30/21 10:31 [id number]) Nutrition Notes Initial or Follow up Brief Note Current Diagnosis Hypertension Other Pertinent Diagnosis etoh withdrawal Current Diet [facility] soft Labs/Tests Na 134 K 3 Pertinent Medications NS at 125 ml/hr Height 6 ft 1 in Weight 63 kg [place] Body Weight (kg) 83.63 BMI 18.3 Weight Status Underweight Subjective/Other Information FU for intakes. Pt is very confused. Per RN, pt eating < 25% of meals. Burn Absent Trauma Absent Current % PO Negligible Minimum of two criteria No Muscle Mass Mild Depletion (non-severe) #1 Nutrition Diagnosis Inadequate oral intake Etiology alcohol withdrawal As Evidenced by Signs and Symptoms pt eating <25% of meals Is patient on ventilator? No Is Patient Ambulatory and/or Out of Bed No REE-([facility]-confined to bed) 1838.988 Kcal/Kg value to use for calculation 34 Approximate Energy Requirements Using 2142 kcal/Kg Calculation Used for Recommendations Won Valenzuela Additional Notes Protein: (0.8-1g/kg) 52-63g Fluid: 1 ml/kcal or per MD Nutrition Intervention Change Diet Order: Continue Add Supplement/Snack (indicate name/kcal Ensure Enlive TID /protein ) Provides kCal: 1,050 Provides Protein (gm) 60 Goal #1 Meet at least 80% of protein and energy needs via PO and ONS intakes Goal #2 Weight gain/maintenance Follow-Up By: 02/03/21 Additional Comments FU for intakes and ONS tolerance
[2021-01-30] MEDS: PHOS-NAK POWDER PACKET PO SCH ×2 (11:22→23:32)
[2021-01-30] MEDS: POTASSIUM CHLORIDE ER 20 MEQ TAB PO SCH ×2 (11:22→16:53)
[2021-01-31] MEDS: SODIUM CHLORIDE 0.9% 1000 ML 1,000 ML IV SCH ×3 (06:19→21:31)
[2021-01-31 06:29] LABS: Albumin 3.7 g/dL (3.9-5); BUN/Creatinine Ratio 12; Blood Urea Nitrogen 6 mg/dL (9-20); Calcium 8.7 mg/dL (8.4-10.2); Hemolysis Index 5
[2021-01-31 06:52] LABS: Alanine Aminotransferase 87 units/L (7-56)
[2021-01-31] MEDS: BUDESONIDE 0.5 MG/2 ML NEBU IH SCH ×2 (07:37→20:40)
[2021-01-31] MEDS: ARFORMOTEROL 15 MCG/2 ML NEBU IH SCH ×2 (07:37→20:40)
[2021-01-31] MEDS: PHOS-NAK POWDER PACKET PO SCH ×2 (09:50→21:31)
[2021-01-31] MEDS: FOLIC ACID 1 MG TAB PO SCH (09:50)
--- NOTE | 2021-01-31 13:17 | Progress Note ---
Assessment and Plan --Delirium tremens Current Visit: Yes Status: Acute Continue CIWA protocol, seizure precautions --Alcohol withdrawal syndrome Current Visit: Yes Status: Acute Alcohol withdrawal protocol: CIWA protocol, thiamine, folic acid, multivitamin daily, IV fluid resuscitation therapy, Seems to be improving. Patient does have significant neuropathy and bilateral extremity weakness Physical therapy evaluation for home PT. --Hypophosphatemia/hypokalemia Current Visit: Yes Status: Acute Replenished with oral KCl and Neutra Follow electrolytes and correct as needed --Nicotine dependence Current Visit: Yes Status: Acute Smoking cessation counseling, supportive care, +15 minutes. --Hyponatremia syndrome Current Visit: Yes Status: Acute IV fluid resuscitation therapy, BMP, repeat BMP in a.m. to monitor serum sodium. --Alcoholic liver disease; Current Visit: Yes Status: Acute Elevated transaminases, trending down Closely monitor, check abdominal ultrasound if needed Advised to quit alcohol intake Discussed alcohol use and patient in detail. --Severe malnutrition Current Visit: Yes Status: Acute Increase protein intake, dietary supplementation, supportive care. --Chronic alcohol abuse; Current Visit: Yes Status: Chronic Strongly advised to quit alcohol intake Advised to seek alcohol rehabilitation Alcohol Anonymous support upon discharge Patient and his verbalized understanding --DVT prophylaxis Current Visit: Yes Status: Acute SCD to bilateral lower extremities while in bed, patient is ambulatory Subjective Date of service: 01/31/21 Principal diagnosis: Alcohol withdrawals ,delirium tremors Interval history: Brief history : 51 YO Male with HTN, JENNIFER, Asthma, Nicotine Dependence, ETOH Dependence is admitted to the emergency room with altered level of consciousness tremulousness and shaking chills. Patient gives history of trying to stop alcohol intake and attempt to detox for the past 4 days, and patient experienced worsening mental status and confusion and tremulousness, and was in alcohol withdrawal and delirium tremens placed on CIWA protocol. Restraint for safety 01/30/2021; patient has severe agitation requiring four-point restraints and high dose of Ativan Recommend alcohol rehabilitation, and to join alcohol Anonymous support system. 01/31/2021. Patient agitation has improved. Will resume remove restraints. Will treat patient with Ativan as needed now in anticipation of discharge. I did recommend alcoholic rehabilitation for patient and to join AA. Anticipate discharge in a.m. Objective - Constitutional Vitals: Vital Signs - 12hr 01/31/21 01/31/21 01/31/21 01:30 02:00 02:30 Temperature Pulse Rate 60 61 74 Pulse Rate [ From Monitor] Respiratory 16 17 14 Rate Blood Pressure 146/96 142/93 125/92 O2 Sat by Pulse 99 99 98 Oximetry 01/31/21 01/31/21 01/31/21 03:01 03:14 03:15 Temperature 98.2 F Pulse Rate 63 Pulse Rate [ From Monitor] Respiratory 13 Rate Blood Pressure 161/104 O2 Sat by Pulse 100 96 Oximetry 01/31/21 01/31/21 01/31/21 03:30 03:55 04:00 Temperature Pulse Rate 63 71 72 Pulse Rate [ From Monitor] Respiratory 11 L 17 Rate Blood Pressure 152/90 106/83 O2 Sat by Pulse 97 96 Oximetry 01/31/21 01/31/21 01/31/21 04:30 05:00 05:30 Temperature Pulse Rate 69 77 61 Pulse Rate [ From Monitor] Respiratory 15 22 13 Rate Blood Pressure 110/82 117/88 143/95 O2 Sat by Pulse 98 95 100 Oximetry 01/31/21 01/31/21 01/31/21 06:01 06:30 07:00 Temperature 98.1 F Pulse Rate 59 L 57 L Pulse Rate [ From Monitor] Respiratory 12 12 Rate Blood Pressure 147/93 156/93 O2 Sat by Pulse 98 Oximetry 01/31/21 01/31/21 01/31/21 07:01 07:30 07:37 Temperature Pulse Rate 59 L 64 Pulse Rate [ From Monitor] Respiratory 9 L 13 Rate Blood Pressure 151/97 116/80 O2 Sat by Pulse 100 96 98 Oximetry 01/31/21 01/31/21 01/31/21 08:00 08:30 09:01 Temperature Pulse Rate 81 65 118 H Pulse Rate [ 70 From Monitor] Respiratory 12 12 21 Rate Blood Pressure 121/78 121/77 142/100 O2 Sat by Pulse 95 95 95 Oximetry 01/31/21 01/31/21 01/31/21 09:30 10:00 10:30 Temperature Pulse Rate 64 92 H 75 Pulse Rate [ From Monitor] Respiratory 14 22 13 Rate Blood Pressure 155/92 132/58 129/89 O2 Sat by Pulse 98 Oximetry 01/31/21 01/31/21 01/31/21 11:00 11:30 11:46 Temperature 97.9 F Pulse Rate 84 83 Pulse Rate [ From Monitor] Respiratory 14 19 Rate Blood Pressure 124/85 136/94 O2 Sat by Pulse 90 99 Oximetry 01/31/21 01/31/21 01/31/21 12:00 12:30 13:00 Temperature Pulse Rate 84 84 85 Pulse Rate [ From Monitor] Respiratory 17 18 19 Rate Blood Pressure 119/82 112/78 109/78 O2 Sat by Pulse 100 100 100 Oximetry General appearance: Present: no acute distress, well-nourished, other - EENT Eyes: PERRL, EOM intact ENT: hearing intact, clear oral mucosa Ears: bilateral: normal - Neck Neck: supple, normal ROM - Respiratory Respiratory effort: normal Respiratory: bilateral: CTA - Breasts Breasts: normal - Cardiovascular Rhythm: regular Heart Sounds: Present: S1 & S2. Absent: gallop, rub Extremities: pulses intact, No edema, normal color, Full ROM Extremity abnormal: other (Lower extremity weakness.) - Gastrointestinal General gastrointestinal: Present: soft, non-tender, non-distended, normal bowel sounds - Genitourinary Male genitourinary: normal - Integumentary Integumentary: clear, warm, dry - Musculoskeletal Musculoskeletal: 1, strength equal bilaterally - Neurologic Neurologic: moves all extremities - Psychiatric Psychiatric: memory intact, appropriate mood/affect, intact judgment & insight - Labs CBC & Chem 7: 01/29/21 07:42 01/31/21 04:24 Labs: Abnormal lab results 01/31/21 Range/Units 04:24 Potassium 3.2 L (3.6-5.0) mmol/L BUN 6 L (9-20) mg/dL Creatinine 0.5 L (0.8-1.3) mg/dL AST 148 H (5-40) units/L ALT 87 H (7-56) units/L Total Protein 5.7 L (6.3-8.2) g/dL Albumin 3.7 L (3.9-5) g/dL HEART Score - HEART Score Troponin: Troponin T < 0.010 ng/mL (0.00-0.029) 01/28/21 09:59
[2021-01-31] MEDS: LORazepam 2 MG/ML VIAL IV PRN (21:43)
[2021-02-01 06:39] LABS: Blood Urea Nitrogen 7 mg/dL (9-20); Hemolysis Index 4
[2021-02-01 06:41] LABS: BUN/Creatinine Ratio 14
[2021-02-01] MEDS: ARFORMOTEROL 15 MCG/2 ML NEBU IH SCH (07:26)
[2021-02-01] MEDS: BUDESONIDE 0.5 MG/2 ML NEBU IH SCH (07:26)
[2021-02-01] MEDS: SODIUM CHLORIDE 0.9% 1000 ML 1,000 ML IV SCH (07:44)
[2021-02-01] MEDS: LORazepam 2 MG/ML VIAL IV PRN ×2 (10:43→12:04)
--- NOTE | 2021-02-01 11:08 | Discharge Summary ---
Providers - Providers Date of Admission: 01/28/21 16:46 Date of discharge: 02/01/21 Attending physician: HUMBERTO DENG 01/31/21 13:21 Physical Therapy Evaluation and Treat [CONS] Routine Comment: Weakness after alcohol use. Stable for home PT. 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 Will discharge on Librium 25 mg 3 times daily. Patient has been educated that he needs to stop alcohol or else he would pass. We will also discuss with spouse. (2) Alcohol withdrawal syndrome Status: Acute Qualifiers: Complication of substance-induced condition: with delirium Qualified Code(s): F10.231 - Alcohol dependence with withdrawal delirium Comment: Symptoms has resolved. Patient hospital course complicated by bilateral weakness. Patient was already unstable and legs walk with a cane. Was able to get up and ambulate from bed to chair. Family aware high risk of fall. Patient will have physical therapy and RN at the home. (3) Delirium tremens Status: Acute Comment: Patient treated covert CIWA protocol. Received medical management. Now much more alert no evidence of alcohol intoxication or withdrawal now. Patient a little unstable on extremities. Again was unstable prior to admission for XR alcohol intoxication as well. Heat therapy. (4) Nicotine dependence Status: Acute Qualifiers: Nicotine product type: cigarettes Substance use status: in withdrawal Qualified Code(s): F17.213 - Nicotine dependence, cigarettes, with withdrawal Comment: Discharge with nicotine patch. (5) Severe malnutrition Status: Acute Comment: Just temporary patient has not been eating well because alcohol. (6) Transaminitis Status: Acute Comment: Transaminases has resolved. Trending down to almost normal. Core Measure Documentation - Palliative Care Palliative Care/ Comfort Measures: Not Applicable - Core Measures Any of the following diagnoses?: none Exam - Constitutional Vitals: Temp Pulse Resp BP Pulse Ox 99.2 F 114 H 24 137/85 95 02/01/21 03:24 02/01/21 10:30 02/01/21 10:30 02/01/21 10:30 02/01/21 10:30 General appearance: Present: no acute distress, well-nourished - EENT Eyes: Present: PERRL ENT: hearing intact, clear oral mucosa - Neck Neck: Present: supple, normal ROM - Respiratory Respiratory effort: normal Respiratory: bilateral: CTA - Cardiovascular Heart Sounds: Present: S1 & S2. Absent: rub, click - Extremities Extremities: pulses symmetrical, No edema Peripheral Pulses: within normal limits - Abdominal General gastrointestinal: Present: soft, non-tender, non-distended, normal bowel sounds Male genitourinary: Present: normal - Integumentary Integumentary: Present: clear, warm, dry - Musculoskeletal Musculoskeletal: strength equal bilaterally, left sided weakness, generalized weakness, other (Left leg a little more weaker than right leg. Patient has been accident broke legs before his walk with crutches for years.) - Psychiatric Psychiatric: appropriate mood/affect, intact judgment & insight, other (Somewhat pressured speech but alert and oriented x3 A answers all questions appropriately.) - Neurologic Neurologic: CNII-XII intact, moves all extremities, other (Alert now. May have some evidence of Warnicke's early. Inform important to stop drinking.) Plan Activity: no driving until cleared by PCP, up only with assistance Weight Bearing Status: Weight Bear as Tolerated Diet: regular Special Instructions: smoking cessation, home health RN, other (Alcohol cessation) Follow up with: PRIMARY CARE, [Primary Care Provider] - 3-5 Days Prescriptions: Thiamine Mononitrate (Vit B1) [Cyto B-1] 100 gm PO DAILY #30 powder Folic Acid [Folvite] 1 mg PO QDAY #30 tablet Mvit,Calcium,Iron,Mins/A.acids [[place] Double Strength Capsule] 1 each PO QDAY #30 capsule chlordiazePOXIDE [Librium] 25 mg PO TID #60 capsule
[2021-02-01] MEDS: FOLIC ACID 1 MG TAB PO SCH (12:04)
[2021-02-01 12:25] VITALS: BP 143/92
[2021-02-01] MEDS ORDERED: chlordiazePOXIDE 25 MG CAP PO SCH (14:00)
== END 2021-02-01 12:55 | disposition home health service (06) | DRG 91 ==
LOC: ED 07:59 → IMCU 16:46
PROVIDERS: ADMIT Internal Medicine; ATTEND Internal Medicine
DX: G25.2 Other specified forms of tremor (principal); E43 Unspecified severe protein-calorie malnutrition; E22.2 Syndrome of inappropriate secretion of antidiuretic hormone; F10.231 Alcohol dependence with withdrawal delirium; Z68.1 Body mass index [BMI] 19.9 or less, adult; F17.213 Nicotine dependence, cigarettes, with withdrawal; E87.6 Hypokalemia; E83.39 Other disorders of phosphorus metabolism; K70.9 Alcoholic liver disease, unspecified; F41.9 Anxiety disorder, unspecified; J45.909 Unspecified asthma, uncomplicated; I10 Essential (primary) hypertension; F41.1 Generalized anxiety disorder; F17.200 Nicotine dependence, unspecified, uncomplicated; Z79.899 Other long term (current) drug therapy; Z82.49 Family history of ischemic heart disease and other diseases of the circulatory system
CPT/HCPCS: 36415; 71045; 80048; 80053; 80307; 80320; 81001; 82140; 82550; 82805; 83690; 83735; 84100; 84443; 84484; 85025; 85027; 93005; 94640; 96365; 96375; G0378; G0480; J2060; J3411; J3475; J3490; J7030